=== PATIENT | male | born 1955 ===

== ENCOUNTER 2022-12-28 14:08 | Emergency (ER) | payer OTHER ==
[~2022-12-28] VITALS: Ht 167 cm; Wt 84.0 kg
--- NOTE | 2022-12-28 14:43 | ED Lower Extremity ---
General Chief Complaint: Lower Extremity Stated Complaint: LT ANKLE INJ | WORK COMP Nursing Triage Note: ARRIVED VIA AMBULATORY TO FAST TRACK. WAS AT WORK AND A FORCLIFF HIT THE OUTSIDE OF HIS LEFT FOOT/ANKLE. Source: patient Exam Limitations: no limitations History of Present Illness Date Seen by Provider: December 28, 2022 Time Seen by Provider: 14:41 Initial Comments Patient is a 67-year-old male speaking here with family with left foot and left ankle injury. This occurred around 1:30 PM today. Patient was at work. Patient works at [employer]. A forklift ran over his foot. Patient was wearing tennis shoes. He states that the tire of the forklift went on top of his foot and then reversed back. Immediate pain. Able to ambulate and walk. Swelling and bruising to the left lateral ankle and left foot. Took ibuprofen right before arrival. Denies any distal numbness and tingling, obvious bone deformity, calf pain, fever, chills, nausea, vomiting, diarrhea. Family assisted in translation Allergies and Home Medications Allergies Coded Allergies: No Known Drug Allergies (Unverified , 12/28/22) Patient Home Medication List Home Medication List Reviewed: Yes Naproxen (Naproxen) 500 Mg Tablet, 500 MG PO Q12H Prescribed by: PHIL HITCHCOCK on 12/28/22 5507 Review of Systems Constitutional: No chills, No diaphoresis EENTM: No ear pain, No blurred vision, No double vision Respiratory: No cough, No dyspnea on exertion Cardiovascular: No chest pain Gastrointestinal: No abdominal pain, No diarrhea, No nausea, No vomiting, No other Genitourinary: No decreased output, No discharge Musculoskeletal: No back pain; joint pain, joint swelling, muscle pain Skin: No change in color, No change in hair/nails All Other Systems Reviewed Negative Unless Noted: Yes Past Tupuepk-Bqomvn-Ovkqgc Hx Patient Social History Tobacco Use?: No Substance use?: No Alcohol Use?: No Physical Exam Vital Signs Vital Signs - First Documented 12/28/22 14:30 Temp 36.3 Pulse 98 Resp 16 B/P (MAP) 184/81 (115) Pulse Ox 97 O2 Delivery Room Air Capillary Refill : Less Than 3 Seconds Height, Weight, BMI Height: '" Weight: lbs. oz. kg; 30.00 BMI Method: General Appearance: WD/WN, no apparent distress HEENT: PERRL/EOMI, normal ENT inspection, TMs normal, pharynx normal Neck: non-tender, full range of motion, supple Cardiovascular: regular rate, rhythm, no edema, no gallop, no JVD Respiratory: chest non-tender, lungs clear, normal breath sounds, no respira tory distress, no accessory muscle use Gastrointestinal: normal bowel sounds, non tender, soft, no organomegaly Back: normal inspection, no CVA tenderness, no vertebral tenderness Hips: bilateral hip non-tender, bilateral hip normal inspection, bilateral hip normal range of motion Ankles: left ankle pain, left ankle soft tissue tenderness, left ankle swelling Feet: left foot pain, left foot soft tissue tenderness, left foot swelling Neurologic/Psychiatric: 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 Tenderness to palpate left dorsum foot.) Progress/Results/Core Measures Results/Orders My Orders Orders - JUSTIN VALENTIN Foot, Left, 3 Views (12/28/22 14:41) Ankle, Left, 3 Views (12/28/22 14:41) Vital Signs/I&O 12/28/22 14:30 Temp 36.3 Pulse 98 Resp 16 B/P (MAP) 184/81 (115) Pulse Ox 97 O2 Delivery Room Air Blood Pressure Mean: 115 Departure Communication (PCP) Reviewed previous ER visits, H&P, lab testing. Due to mechanism of injury x-ray the left foot and left ankle was ordered. Differential diagnosis, soft tissue injury, foot or ankle fracture. X-ray was negative for fracture of the left ankle and left foot. Discussed these results with patient. Refused anything for pain on arrival. Did take ibuprofen right before arrival. Recommend rest for at least the next week. Ice and elevate. Provided range of motion exercises. recommend soft shoe to wear at home. Elevate at home. Norris wrap for support. Will discharge with naproxen. Recommend recheck with orthopedic in 7 to 14 days if pain progress. If any worsening symptoms such as increased pain, skin color changes to return back to ED. Left leg neurovascular intact. No evidence of compartment syndrome. No pain out of proportion. No paresthesia at this time. Impression Primary Impression: Contusion of foot Disposition: HOME, SELF-CARE Condition: Stable Departure-Patient Inst. Decision time for Depature: 15:42 Referrals: BRIJESH RICHEY MD Patient Instructions: Minor Contusion ED Add. Discharge Instructions: Recommend ice, anti-inflammatories for pain. Recommend rest for the next week. Orthopedic outpatient follow-up in 7 to 10 days if pain progress All discharge instructions reviewed with patient and/or family. Voiced understanding. Scripts Naproxen (Naproxen) 500 Mg Tablet 500 MG PO Q12H, #20 TAB Prov: JUSTIN VALENTIN 12/28/22 Work/School Note: Work Release Form Date Seen in the Emergency Department: December 28, 2022 Return to Work: January 01, 2023 JUSTIN VALENTIN December 28, 2022 14:43
--- NOTE | 2022-12-28 15:37 | Diagnostic Imaging Report ---
INDICATION: Injury with ankle pain. FINDINGS: Three view left ankle performed. There does appear to be some swelling anteriorly and mildly laterally. No fracture or disruption of the mortise. No gas or opaque foreign body. IMPRESSION: Soft tissue swelling but no acute bony injury identified. Dictated by: Dictated on workstation # [id number]
--- NOTE | 2022-12-28 15:40 | Diagnostic Imaging Report ---
HISTORY: Lateral left foot pain. TECHNIQUE: Three views of the left foot. COMPARISON: None. FINDINGS: No acute fracture or dislocation is seen in the left foot. Alignment is normal. Joint spaces are generally preserved. There is mild soft tissue swelling about the left foot. There is a moderate-sized plantar calcaneal enthesophyte. There is calcific atherosclerosis. IMPRESSION: Mild soft tissue swelling in the left foot with no acute osseous abnormality seen. Dictated by: Dictated on workstation # [id number]
[2022-12-28] MEDS ORDERED: NAPR-915 PO (15:42)
[2022-12-28 15:45] VITALS: BP 172/84
== END 2022-12-28 15:45 | disposition home or self-care (01) ==
LOC: ER 14:16
DX: S90.32XA Contusion of left foot, initial encounter (principal); W22.8XXA Striking against or struck by other objects, initial encounter; Y92.59 Other trade areas as the place of occurrence of the external cause; Y99.0 Civilian activity done for income or pay
CPT/HCPCS: 73610; 73630

== ENCOUNTER 2023-01-15 11:14 | Emergency (ER) | payer OTHER ==
[~2023-01-15] VITALS: Ht 160 cm; Wt 84.0 kg
[~2023-01-15 11:14] MED LIST: NAPR-915 PO
--- NOTE | 2023-01-15 11:36 | ED Lower Extremity ---
General Chief Complaint: Lower Extremity Stated Complaint: LT FOOT PAIN Source: patient, family Exam Limitations: no limitations (JUSTIN VALENTIN) History of Present Illness Date Seen by Provider: Jan 15, 2023 Time Seen by Provider: 11:34 Initial Comments Patient is a 67-year-old male who presents ED with left foot pain. Patient was seen here December 28 after a injury to his left foot. Patient states a forklift ran over his foot at that time. Was seen here in the ER had negative x-rays of the left foot and ankle. States he reports continued pain. Pain gets worse throu ghout the day. Swelling gets worse as the day goes on. Has been working. Patient states he has not followed up with orthopedic. He has been taken naproxen that was prescribed for him. He does report normal range of motion of his toes and ankle. Denies of any increased redness or bruising or obvious skin color changes besides the swelling. Denies fever, chills, nausea, vomiting, diarrhea, chest pain, shortness of breath, calf swelling or pain (JUSITN VALENTIN) Allergies and Home Medications Allergies Coded Allergies: No Known Drug Allergies (Unverified , 12/28/22) Patient Home Medication List Home Medication List Reviewed: Yes (JUSTIN VALENTIN) Naproxen (Naproxen) 500 Mg Tablet, 500 MG PO Q12H Prescribed by: PHIL HITCHCOCK on 12/28/22 1542 Review of Systems Constitutional: No chills, No diaphoresis EENTM: No ear pain, No blurred vision, No double vision Respiratory: No cough, No dyspnea on exertion Cardiovascular: No chest pain Gastrointestinal: No abdominal pain, No diarrhea, No nausea, No vomiting Genitourinary: No decreased output, No discharge Musculoskeletal: No back pain; joint pain, joint swelling, muscle pain Skin: No change in color, No change in hair/nails (JUSTIN VALENTIN) All Other Systems Reviewed Negative Unless Noted: Yes (JUSTIN VALENTIN) Past Dtscxrf-Wyvdqz-Hvvkmt Hx Patient Social History Tobacco Use?: No Use of E-Cig and/or Vaping dev: No Substance use?: No Alcohol Use?: No Pt feels they are or have been: No (JUSTIN VALENTIN) Immunizations Up To Date Influenza Vaccine Up-to-Date: Yes; Up-to-Date First/Initial COVID19 Vaccinat: "3 DOSES" (JUSTIN VALENTIN) Past Medical History Surgery/Hospitalization HX: NIDDM DENIES SURGERIES (JUSTIN VALENTIN) Physical Exam Vital Signs Vital Signs - First Documented 01/15/23 11:20 Temp 37.1 Pulse 86 Resp 16 B/P (MAP) 158/94 (115) Pulse Ox 96 O2 Delivery Room Air (PETEY BEACH MD) Vital Signs Capillary Refill : (UJSTIN VALENTIN) Height, Weight, BMI Height: '" Weight: lbs. oz. kg; 30.00 BMI Method: General Appearance: WD/WN, no apparent distress HEENT: PERRL/EOMI, normal ENT inspection, TMs normal, pharynx normal Neck: non-tender, full range of motion, supple Cardiovascular: regular rate, rhythm, no edema, no gallop, no JVD Respiratory: chest non-tender, lungs clear, normal breath sounds, no respiratory distress, no accessory muscle use Gastrointestinal: normal bowel sounds, non tender, soft, no organomegaly, no pulsatile mass Back: normal inspection, no CVA tenderness, no vertebral tenderness Hips: bilateral hip non-tender, bilateral hip normal inspection, bilateral hip normal range of motion Knees: bilateral knee non-tender, bilateral knee normal inspection, bilateral knee normal range of motion Ankles: bilateral ankle non-tender, bilateral ankle normal inspection, bilateral ankle normal range of motion Feet: left foot pain (Left dorsum foot tenderness), left foot soft tissue tenderness 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 Differential diagnoses left foot contusion, occult fracture. Patient was seen here December 28 had negative x-rays of his left ankle and foot. Continued pain worse as the evening goes on. Swelling. On exam no evidence compartment syndrome. Neurovascular intact. Normal active range of motion of the ankle and toes. Tenderness to left dorsum foot. X-ray was ordered which did not show any new bone formation or fracture. Recommend postop shoe. Recommend rest elevation ice. Orthopedic follow-up is recommended. Residual pain from the injury. (JUSTIN VALENTIN) Impression Primary Impression: Foot swelling Disposition: HOME, SELF-CARE Condition: Stable Departure-Patient Inst. Decision time for Depature: 11:56 (JUSTIN VALENTIN) Referrals: NO,LOCAL PHYSICIAN (PCP) Primary Care Physician BRIJESH RICHEY MD Patient Instructions: Sprain (DC) Add. Discharge Instructions: Recommend rest. Elevate at night. Anti-inflammatories for pain. Orthopedic follow-up All discharge instructions reviewed with patient and/or family. Voiced understanding. Work/School Note: Work Release Form Date Seen in the Emergency Department: Jan 15, 2023 Return to Work: Jan 18, 2023 ATTENDING PHYSICIAN NOTE: I was physically present as attending physician in the emergency department during the care of this patient, but I was not directly involved in the decision making or delivery of care for this patient. (PETEY BEACH MD) JUSTIN VALENTIN Jan 15, 2023 11:36 PETEY BEACH MD Jan 16, 2023 12:02
--- NOTE | 2023-01-15 11:52 | Diagnostic Imaging Report ---
Indication: Injury with pain and swelling. 3 views left foot performed COMPARISON: 12/28/2022 There is some swelling over the dorsum of the mid to forefoot seen in the lateral view. There is a chronic plantar calcaneal spur. No acute periosteal reaction. No fracture or bony destructive process. No gas or opaque foreign body. IMPRESSION: Soft tissue swelling but no acute appearing bony abnormality. Dictated by: Dictated on workstation # [id number]
[2023-01-15 12:06] VITALS: BP 147/86
== END 2023-01-15 12:06 | disposition home or self-care (01) ==
LOC: EDUNIT# 11:14 → ER 11:17
DX: M79.89 Other specified soft tissue disorders (principal); M79.672 Pain in left foot
CPT/HCPCS: 73630